=== PATIENT | male | born 1935 | race Caucasian/White ===

== ENCOUNTER → 2018-01-30 | Outpatient (CLI) | payer MEDICARE, OTHER ==
[~2018-01-30] MED LIST: MELO-150 PO; NEBI10TA4 PO; PER PO; RAMI10CA62 PO; RAMI10CA72 PO; SIMV-42 PO; [UNRECOGNIZED DRUG - CODE] PO
== END ==
LOC: LAB 10:30
PROVIDERS: ATTEND Internal Medicine Nephrology
DX: N18.3 Chronic kidney disease, stage 3 (moderate) (principal); I10 Essential (primary) hypertension
CPT/HCPCS: 82570; 84156

== ENCOUNTER → 2018-02-06 | Outpatient (CLI) | payer MEDICARE, OTHER ==
--- NOTE | 2018-02-06 13:35 | RADIOLOGY IMAGING REPORT ---
FACILITY: [facility] - [place] PATIENT NAME: Husam Lorenzana : 1935 MR: [id number] V: [id number] EXAM DATE: ORDERING PHYSICIAN: MAURO CORTEZ TECHNOLOGIST: Location: [facility] Patient: Husam Lorenzana : 1935 Visit/Account:[id number] Date of Sevice: 02/06/2018 MRI of the lumbar spine Indication: Numbness down both legs. Comparison: None available. Technique: Sagittal T2-weighted, sagittal STIR, sagittal T1-weighted, and axial T2-weighted images of the lumbar spine were obtained. Findings: The conus terminates normally at level of L1-L2 Moderate endplate changes anterior superior endplate of L2. There is mild left convex curvature lumbar spine with apex at L3-L4. There is no abnormal signal within the visualized spinal cord, The vertebral body heights are well maintained. Disc desiccation seen throughout the lumbar spine levels. There is minimal disc space narrowing L2-L3 . L1-L2: Minimal diffuse disc bulge and facet arthropathy with overall mild central stenosis. There is mild foraminal narrowing bilaterally. L2-L3: Moderate diffuse disc bulge and facet arthropathy results in overall moderate focal stenosis. There is moderate bilateral neural foraminal narrowing. L3-L4: Prominent diffuse disc bulge and facet arthropathy results in overall moderate to severe hemanth tral stenosis. Is severe bilateral lateral recess narrowing. There is moderate to severe right-sided and moderate left-sided neural foraminal narrowing. L4-L5: Prominent diffuse disc bulge and severe facet arthropathy as well as ligamentum flavum hypertr ophy causing severe central stenosis. There is moderate bilateral neural foraminal narrowing. L5-S1: Mild diffuse disc bulge and moderate to severe facet arthropathy results in overall mild hemanth tral stenosis. There is severe foraminal narrowing bilaterally. Impression: 1. Prominent degenerative changes lumbar spine as above most significant at L4-L5 where there is katarzyna re central stenosis as well as at L5-S1 where there is severe foraminal narrowing bilaterally. Report Dictated By: Elbert Hammer MD at 02/06/2018 1:26 PM Report E-Signed By: Elbert Hammer MD at 02/06/2018 1:31 PM WSN:[email or web address]
== END ==
LOC: MRI 07:08
PROVIDERS: ATTEND Neurological Surgery
DX: M48.062 Spinal stenosis, lumbar region with neurogenic claudication (principal)
CPT/HCPCS: 72148

== ENCOUNTER → 2018-02-14 | Outpatient (CLI) | payer MEDICARE, OTHER ==
[~2018-02-14] MED LIST changes: +REGADENOSON 0.4 MG/5 ML SYR ONE
== END ==
LOC: NUC 01:40
PROVIDERS: ATTEND Internal Medicine Cardiovascular Disease
DX: R07.9 Chest pain, unspecified (principal)
CPT/HCPCS: J2785

== ENCOUNTER → 2018-02-24 | Outpatient (CLI) | payer MEDICARE, OTHER ==
--- NOTE | 2018-02-25 05:22 | RT STRESS TEST REPORT ---
FACILITY: [facility] [place] PATIENT NAME: KATERINE ARCHULETA : [id number] MR: [id number] V: [id number] EXAM DATE: ORDERING PHYSICIAN: JORDON OTHER TECHNOLOGIST: Joe Acquisition Time: 2018-02-24 14:09:40 Total Exercise Time: 00:01:00 Test Indications: Chest Discomfort Medications: see nuc med sheet Protocol: LEXISCAN Max HR: 064 BPM 45% of Pred: 140 BPM Max BP: 128/076 mmHG Max Work Load: 1.0 METS Stress was performed using Lexiscan Protocol. He experienced some mild chest tightness with the infus ion. No significant EKG changes were seen. He did have rare PACs. Await [facility] [employer] [facility]. Confirmed by JUAN LUIS JEFFREY ([id number]) on 02/25/2018 5:21:48 AM Referred By: Lawrence Naidu Overread By: JUAN LUIS JEFFREY
--- NOTE | 2018-02-25 14:55 | RADIOLOGY IMAGING REPORT ---
FACILITY: [facility] - [place] PATIENT NAME: Husam Lorenzana : 1935 MR: [id number] V: [id number] EXAM DATE: ORDERING PHYSICIAN: ALFIE MARTINO TECHNOLOGIST: Location: Patient: Husam Lorenzana : 1935 Visit/Account:[id number] Date of Sevice: 02/24/2018 EXAMINATION: Single isotope SPECT imaging with regadenoson infusion and gated SPECT imaging. DATE OF EXAMINATION: 02/25/2018. DATE OF INTERPRETATION: 02/25/2018. REQUESTING PHYSICIAN: ALFIE MARTINO. INDICATION: The patient is a 82-year-old male evaluated for chest discomfort. PROCEDURE: After informed consent the patient received an intravenous injection of 13.2 mCi of Tc-99 m sestamibi followed at an appropriate time interval by rest imaging. The patient then subsequently received an intravenous infusion of 0.4 mg of regadenoson per protocol without complication. Resting heart rate was 50 bpm with a peak heart rate of 64 bpm. Blood pressure at rest was 128 / 76 and fol lowing infusion was 128 / 76. Baseline EKG demonstrates sinus rhythm. There were no EKG changes of ischemia following infusion. Symptoms were nonspecific. The patient then received an intravenous in jection of 29.9 mCi of Tc-99m sestamibi followed by stress imaging. RAW DATA: Examination of the summed raw data revealed a fair quality study. There is evidence of andria phragmatic attenuation. MYOCARDIAL PERFUSION: The tomographic images demonstrate normal myocardial perfusion with no clear e vidence of infarct or ischemia. There is a small inferior defect at rest that is moderate in intensit y that resolved with prone imaging, consistent with diaphragmatic attenuation. There is no TID. GATED IMAGES: The gated images demonstrate normal ejection fraction 62% with normal wall motion and thickening. IMPRESSION: 1. Nondiagnostic Lexiscan stress ECG 2. Normal myocardial perfusion scan. 3. Normal LV systolic function; LVEF 62%. 4. Based on the results of this exam, the patient appears to be at low risk for future cardiovascular events. Report Dictated By: Rei Meier at 02/25/2018 2:49 PM Report E-Signed By: Rei Meier at 02/25/2018 2:52 PM WSN:[id number]
== END ==
LOC: RESP 03:19
PROVIDERS: ATTEND Internal Medicine Cardiovascular Disease
DX: R07.9 Chest pain, unspecified (principal)
CPT/HCPCS: 78452; 93017; A9500; J2785

== ENCOUNTER → 2018-04-11 | Outpatient (CLI) | payer MEDICARE, OTHER ==
[~2018-04-11] MED LIST changes: +LIDOCAINE MPF 1% 5 ML VIAL ONE; -REGADENOSON 0.4 MG/5 ML SYR ONE
--- NOTE | 2018-04-11 11:58 | RADIOLOGY IMAGING REPORT ---
FACILITY: [facility] - [place] PATIENT NAME: Husam Lorenzana : 1935 MR: [id number] V: [id number] EXAM DATE: ORDERING PHYSICIAN: DAWNA FERRARO TECHNOLOGIST: Location: [facility] Patient: Husam Lorenzana : 1935 Visit/Account:[id number] Date of Sevice: 04/11/2018 KIDNEYS Indication: 82-year-old male with bilateral renal cysts and chronic right flank pain. Procedure: There has been satisfactory grayscale ultrasonic evaluation of the kidneys and bladder. Comparison: CT scan without contrast kidneys February 07, 2016. Findings: Right side: Again noted are numerous cysts in the right kidney. The largest is located in the superior aspect an d it measures 10.5 x 9.7 x 10.1 cm in its greatest dimensions. This could be the cause of the patien t's pain. It has been drained in the past but has recurred. It is again accessible to percutaneous drainage. Left side: There are numerous cysts in the left kidney. The largest cyst projects from the superior pole the le ft kidney and it measures 10.5 x 10.6 x 9.3 cm in size. Bladder: Bladder is unremarkable. Bilateral ureteral jets are identified. IMPRESSION: 1. In this patient with bilateral renal cysts the largest cyst is in the superior pole the right kid cedric. It measures 10.5 x 9.7 x 10.1 cm in size. It is accessible to percutaneous drainage. 2. In the superior pole the left kidney there is another cyst. It measures 10.5 x 10.6 x 9.3 cm. T here is no history of this cyst being drained in the past. 3. No definitive findings of hydronephrosis involving the right or left kidney. Report Dictated By: Gus Watkins MD at 04/11/2018 11:30 AM Report E-Signed By: Gus Watkins MD at 04/11/2018 11:55 AM WSN:[email or web address]
[2018-04-11 12:09] VITALS: BP 131/78
[2018-04-11 12:29] VITALS: BP 102/60
[2018-04-11 12:48] VITALS: BP 118/80
[2018-04-11 13:00] VITALS: BP 108/64
--- NOTE | 2018-04-11 13:19 | RADIOLOGY IMAGING REPORT ---
FACILITY: [facility] - [place] PATIENT NAME: Husam Lorenzana : 1935 MR: [id number] V: [id number] EXAM DATE: ORDERING PHYSICIAN: DAWNA FERRARO TECHNOLOGIST: [place] [facility] [place] Husam Lorenz[place] : 1935 Visit/Account:[id number] Date of Sevice: 04/11/2018 CT ABCESS DRAINAGE ABDOMEN Indication: 82-year-old male with bilateral renal cysts and right flank pain due to a large right adriane al cyst in the superior pole. Drainage is requested for therapeutic purposes. Informed consent was obtained from the patient prior to the start of procedure. Risks of bleeding, in fection and damage to adjacent organs were all discussed. Procedure: Following an official timeout documenting the patient's name and type of procedure the pat ient was placed prone on the CT table. Localizing images were obtained through the right kidney. One of the following dose optimization techniques was utilized in the performance of this exam: Autom ated exposure control; adjustment of the mA and/or kV according to the patient's size; or use of an i terative reconstruction technique. Specific details can be referenced in the facility's radiology C T exam operational policy. Skin overlying the region was prepped and draped in usual sterile fashion. Following local anesthesia to the skin and subcutaneous tissues CT guidance was used to direct a 5 [place] needle into the right renal cyst for cannulation with a 0.035 inch guidewire. Following cannulation the needle exchanged over the guidewire for an 8 [place] drainage catheter. The drainage catheters placed into the cyst an d connected to a suction container. 600 mL of serous fluid was removed. Follow-up images confirm co mplete decompression of the cyst. The patient stated he felt significantly better. The catheter was removed. Completion images showed satisfactory position of the catheter before was removed and no pneumothorax . Findings: Large right renal cyst measuring greater than 10 cm in diameter. The cyst was drained usin g CT guidance an 8 [place] drainage catheter. 600 mL of serous fluid was removed. IMPRESSION: 1. 82-year-old male with bilateral renal cysts. Patient status post right renal cyst dr linton in 2017. Patient with recurrent pain and repeat drainage requested. 2. CT-guided aspiration of a right renal cyst using an 8 [place] drainage catheter. Approximately 60 0 mL of serous fluid was removed. The catheter was removed at the conclusion of the procedure. The patient tolerated the procedure well without complications. 3. At the conclusion of the procedure I discussed with him the option of alcohol sclerosis should symptoms recur yet again. He has my phone number and can contact me. Report Dictated By: Gus Watkins MD at 04/11/2018 1:06 PM Report E-Signed By: Gus Watkins MD at 04/11/2018 1:14 PM WSN:[email or web address]
== END ==
LOC: US 02:26
PROVIDERS: ATTEND Internal Medicine Nephrology
DX: N28.1 Cyst of kidney, acquired (principal); N18.3 Chronic kidney disease, stage 3 (moderate)
CPT/HCPCS: 75989; 76705; J2001

== ENCOUNTER → 2018-06-11 | Outpatient (CLI) | payer MEDICARE, OTHER ==
[~2018-06-11] MED LIST changes: -LIDOCAINE MPF 1% 5 ML VIAL ONE
[2018-06-11 12:44] LABS: PLATELET COUNT, AUTOMATED 244 K/uL (150-450)
== END ==
LOC: LAB 12:29
PROVIDERS: ATTEND Urology
DX: C61 Malignant neoplasm of prostate (principal); N18.9 Chronic kidney disease, unspecified
CPT/HCPCS: 36415; 82040; 82247; 82310; 82374; 82435; 82565; 82947; 84075; 84132; 84153; 84155; 84295; 84450; 84460; 84520; 85025

== ENCOUNTER → 2019-05-18 | Outpatient (CLI) | payer MEDICARE, OTHER ==
[2019-05-18 15:51] LABS: PLATELET COUNT, AUTOMATED 224 K/uL (150-450)
== END ==
LOC: LAB 15:18
PROVIDERS: ATTEND Internal Medicine Nephrology
DX: N18.3 Chronic kidney disease, stage 3 (moderate) (principal); Q61.3 Polycystic kidney, unspecified; N32.0 Bladder-neck obstruction; I12.9 Hypertensive chronic kidney disease with stage 1 through stage 4 chronic kidney disease, or unspecified chronic kidney disease
CPT/HCPCS: 36415; 82040; 82306; 82310; 82374; 82435; 82565; 82570; 82947; 83970; 84100; 84132; 84156; 84295; 84520; 85025